=== PATIENT | female | born 1945 | race Two or more races ===

== ENCOUNTER 2024-11-03 01:56 | Inpatient (IN) | payer OTHER ==
[~2024-11-03] VITALS: Ht 162.6 cm; Wt 63.0 kg
--- NOTE | 2024-11-03 02:14 | NUR ---
PACIENTE ALERTA Y ORIENTADA X3 EN COMPANIA DE AMBULANCIA INDICA ES UN [facility] POR KELSEA MASA EN EL PANCREAS ACEPTADA POR DRA. COWART. PTE CANALIZADA CON ANGIO #20 Y HEPARIN LOCK.
[2024-11-03] MEDS ORDERED: 0.9 % SODIUM CHLORIDE 1,000 ML IV STA (02:33)
--- NOTE | 2024-11-03 02:53 | NUR ---
SE EDUCA A PTE Y FAMILIAR SOBRE TX MEDICO, SE ATILIO MUESTRAS DE LABORATORIO UTILIZANDO MEDIDAS ASEPTICAS. PTE CON H/L EN BRAZO LT [place], SE VERIFICA EL MISMO EL CUAL SE ENCUENTRA PATENTE. SE [place] IV FLUIDS COURTNEY ORDEN MEDICA. SE REALIZA EKG A PTE Y SE PRESENTA A MD.
[2024-11-03 03:35] LABS: ALBUMIN 2.6 gm/dL (3.4-5.0); CALCIUM 8.7 mg/dL (8.5-10.1); CREATININE SERUM 1.1 mg/dL (0.55-1.02); GFR 47.79; GLOBULINA 4.3 G/DL (2.4-3.5); POTASSIUM 4.09 mEq/L (3.5-5.1); TOTAL PROTEIN 6.9 gm/dL (6.4-8.2)
[2024-11-03 03:38] LABS: BILIRUBIN,UNCONJUGATED 2.29 mg/dL (0.0-0.6)
[2024-11-03 03:40] LABS: BILIRUBIN TOTAL 12.9 mg/dL (0.3-1.2); BILIRUBIN,CONJUGATED 10.61 mg/dL (0.0-0.2)
[2024-11-03 03:59] LABS: BASO % 0.9 % (0.1-1.2); EOS # 0.06 (0.04-0.54); EOS % 0.8 % (0.7-7.0); HEMATOCRIT 37.4 % (34.1-44.9); HEMOGLOBIN 12.8 g/dL (11.2-15.7); LYMPH # 0.81 (1.18-3.74); LYMPH % 10.9 % (19.3-53.1); MEAN CORPUSCULAR HEMOGLOBIN 29.8 pg (25.6-32.2); MONO # 0.24 (0.24-0.82); MONO % 3.2 % (4.7-12.5); NEUT # 6.21 (1.56-6.13); NEUT % 83.7 % (34.0-71.1); PLATELET COUNT 324 K/uL (163-369); RED BLOOD COUNT 4.29 M/uL (3.93-5.22); RED CELL DISTRIBUTION WIDTH 14.8 % (11.6-14.4)
[2024-11-03 04:00] LABS: ERYTHROCYTE SEDIMENTATION RATE 106 mm/hr (0-30)
[2024-11-03] MEDS ORDERED: 0.9 % SODIUM CHLORIDE 1,000 ML IV SCH (11:45)
[2024-11-03] MEDS ORDERED: LACTOBACILLUS ACIDOPHILUS 1 CAP CAP PO SCH (11:51)
[2024-11-03] MEDS ORDERED: MULTIVIT INFUSN,ADULT 4,VIT K 10 ML VIAL IV SCH (11:51)
[2024-11-03] MEDS ORDERED: ASPIRIN 81 MG TABLET.EC PO SCH (11:53)
[2024-11-03] MEDS ORDERED: AMLODIPINE BESYLATE 5 MG TABLET PO SCH (11:54)
[2024-11-03] MEDS ORDERED: FAMOTIDINE/PF 20 MG/2 ML VIAL IV SCH (11:55)
[2024-11-03] MEDS ORDERED: MEMANTINE HCL 10 MG TABLET PO SCH (11:56)
[2024-11-03] MEDS ORDERED: SERTRALINE HCL 50 MG TABLET PO SCH (11:57)
[2024-11-03] MEDS ORDERED: DEXTROSE 50 % IN WATER 0.5 G/ML VIAL IV PRN (12:00)
[2024-11-03] MEDS ORDERED: ACETAMINOPHEN 500 MG GEL..CAP PO PRN (12:00)
[2024-11-03] MEDS ORDERED: INSULIN LISPRO 1,000 UNIT/10 ML UNITS SUBCUTANEO PRN (12:00)
[2024-11-03] MEDS ORDERED: AMPICILLIN SODIUM IV SCH (13:00)
[2024-11-03] MEDS ORDERED: SULBACTAM NA IV SCH (13:00)
[2024-11-03] MEDS ORDERED: CHOLESTYRAMINE/ASPARTAME LIGHT 4 G/PKT PACKET PO SCH (13:00)
[2024-11-03] MEDS ORDERED: SODIUM CHLORIDE 0.9% IV SCH (13:00)
[2024-11-03 16:26] LABS: PH,URINE 5.5 (5.0-8.0); URINE APPEARANCE Clear; URINE BILIRRUBIN Large (NEGATIVE); URINE BLOOD Small; URINE COLOR Dark Yellow; URINE LEUKOCYTE Negative; URINE NITRATE Negative; URINE PROTEIN 30 (NEGATIVE); URINE UROBILINOGEN 0.2 E.U./dl
[2024-11-03 16:41] LABS: URINE RBC 18.1 uL (0.0-20.8); URINE WBC 4.2 uL (0.0-23.2)
[2024-11-03 16:57] LABS: URINE CAST 0.58 uL (0.0-1.40); URINE GLUCOSE >=1000 MG/DL (NEGATIVE); URINE KETONE 40 (NEGATIVE)
[2024-11-03 16:58] LABS: URINE MUCUS SCANT
[2024-11-03] MEDS ORDERED: RIVASTIGMINE 4.5 MG PO SCH (17:00)
[2024-11-03 20:00] VITALS: BP 158/84; O2SAT 98
[2024-11-03] MEDS ORDERED: METOPROLOL SUCCINATE 50 MG TAB.SR.24H PO SCH (21:00)
[2024-11-03] MEDS ORDERED: QUETIAPINE FUMARATE 25 MG TABLET PO SCH (21:00)
[2024-11-04 01:27] VITALS: BP 145/79
[2024-11-04] MEDS ORDERED: LOSARTAN POTASSIUM 50 MG TABLET PO SCH (09:00)
[2024-11-04 09:14] VITALS: BP 150/85; O2SAT 99
[2024-11-04 10:09] LABS: BASO % 0.3 % (0.1-1.2); EOS # 0.01 (0.04-0.54); EOS % 0.1 % (0.7-7.0); HEMATOCRIT 34.3 % (34.1-44.9); HEMOGLOBIN 11.8 g/dL (11.2-15.7); LYMPH # 1.26 (1.18-3.74); LYMPH % 9.9 % (19.3-53.1); MEAN CORPUSCULAR HEMOGLOBIN 29.9 pg (25.6-32.2); MONO # 1.18 (0.24-0.82); MONO % 9.3 % (4.7-12.5); NEUT # 10.15 (1.56-6.13); NEUT % 79.8 % (34.0-71.1); PLATELET COUNT 361 K/uL (163-369); RED BLOOD COUNT 3.95 M/uL (3.93-5.22); RED CELL DISTRIBUTION WIDTH 14.8 % (11.6-14.4)
[2024-11-04 10:42] LABS: ERYTHROCYTE SEDIMENTATION RATE 125 mm/hr (0-30)
[2024-11-04 10:47] LABS: INR 1.27; PARTIAL THROMBOPLASTIN TIME 21.6 SECONDS (22.0-34.0); PROTHROMBIN TIME 13.6 SECONDS (9.0-11.5)
[2024-11-04 12:53] LABS: CALCIUM 9.1 mg/dL (8.5-10.1); CREATININE SERUM 0.95 mg/dL (0.55-1.02); GFR 56.6; PHOSPHOROUS 2.1 mg/dL (2.5-4.9); POTASSIUM 4.74 mEq/L (3.5-5.1)
[2024-11-04 12:54] LABS: ALBUMIN 2.6 gm/dL (3.4-5.0); BILIRUBIN TOTAL 15.97 mg/dL (0.3-1.2); CHOL HDL RATIO 38.9 (0-5.0); GLOBULINA 4.3 G/DL (2.4-3.5); MAGNESIUM 2.4 mg/dL (1.8-2.4); TOTAL PROTEIN 6.9 gm/dL (6.4-8.2)
[2024-11-04 12:55] LABS: C-REACTIVE PROTEIN 2.44 MG/DL (0.00-0.29)
[2024-11-04 12:56] LABS: TSH 0.757 uIU/mL (0.358-3.74)
[2024-11-04] MEDS ORDERED: POTASSIUM PHOS,M-BASIC-D-BASIC 15 MM in 0.9 % SODIUM CHLORIDE 250 ML IV NR (14:00)
[2024-11-04] MEDS ORDERED: LACTULOSE 20 G/30 ML BLIST.PACK PO SCH (17:00)
[2024-11-04] MEDS ORDERED: IOVERSOL 320 MG/ML - 50 ML VIAL IV ONE (18:55)
[2024-11-05] MEDS ORDERED: SODIUM CL 0.9% 100 ML IV.SOLN IV ONE ×3 (00:09→20:17)
[2024-11-05 01:19] VITALS: BP 142/70; O2SAT 97
[2024-11-05 09:11] LABS: HEPATITIS A IGM Negative (Negative); HEPATITIS B CORE IGM Negative (Negative); HEPATITIS B SURFACE ANTIBODY Non Reactive (.); HEPATITIS C VIRUS ANTIBODY Non Reactive (Non Reactive)
[2024-11-05 09:26] VITALS: BP 156/81; O2SAT 95
[2024-11-05 13:09] LABS: URINE APPEARANCE Clear; URINE BILIRRUBIN Large (NEGATIVE); URINE BLOOD Trace; URINE COLOR Dark Yellow; URINE KETONE Negative (NEGATIVE); URINE LEUKOCYTE Negative; URINE NITRATE Negative; URINE PROTEIN Negative (NEGATIVE); URINE UROBILINOGEN 0.2 E.U./dl
[2024-11-05 13:13] LABS: URINE BACTERIA 7.3 uL (0.0-1933); URINE EPITHELIAL CELLS 7.5 uL (0.0-38.8); URINE RBC 9.4 uL (0.0-20.8); URINE WBC 1.8 uL (0.0-23.2)
[2024-11-05 13:23] LABS: URINE CAST 0.14 uL (0.0-1.40); URINE GLUCOSE 500 MG/DL (NEGATIVE)
[2024-11-05 17:59] VITALS: BP 158/84
[2024-11-06] MEDS ORDERED: SODIUM CL 0.9% 100 ML IV.SOLN IV ONE ×2 (00:42→08:47)
[2024-11-06 03:02] VITALS: BP 155/83; O2SAT 95
[2024-11-06 08:00] VITALS: BP 153/79
[2024-11-06] MEDS ORDERED: INSULIN GLARGINE,HUM.REC.ANLOG 1,000 UNITS/10 ML UNITS SUBCUTANEO SCH (09:00)
[2024-11-06 15:55] LABS: ALBUMIN 2.3 gm/dL (3.4-5.0); CALCIUM 8.9 mg/dL (8.5-10.1); CREATININE SERUM 0.73 mg/dL (0.55-1.02); GFR 76.71; GLOBULINA 3.2 G/DL (2.4-3.5); POTASSIUM 4.18 mEq/L (3.5-5.1); TOTAL PROTEIN 5.5 gm/dL (6.4-8.2)
[2024-11-06 16:59] LABS: BILIRUBIN TOTAL 13.86 mg/dL (0.3-1.2)
[2024-11-06] MEDS ORDERED: LACTULOSE 20 G/30 ML BLIST.PACK PO SCH (17:00)
[2024-11-06] MEDS ORDERED: PIPERACILLIN/TAZOBACTAM SODIUM 3.375 GM in DEXTROSE 5 % IN WATER 100 ML IV SCH (18:00)
[2024-11-06 19:11] VITALS: BP 145/75
[2024-11-06] MEDS ORDERED: BUPIVACAINE HCL/MPF 0.5% 30ML VIAL ONE (21:24)
[2024-11-06] MEDS ORDERED: IOVERSOL 320 MG/ML - 50 ML VIAL IV ONE (21:24)
[2024-11-06] MEDS ORDERED: FAMOTIDINE/PF 20 MG/2 ML VIAL ONE (22:30)
[2024-11-06] MEDS ORDERED: PIPERACILLIN/TAZOBACTAM SODIUM 3.375 GM VIAL IV ONE (23:58)
[2024-11-07 03:56] VITALS: BP 133/80
[2024-11-07 08:48] VITALS: BP 130/76; O2SAT 99
[2024-11-07 10:13] LABS: BASO % 0.6 % (0.1-1.2); EOS # 0.26 (0.04-0.54); EOS % 2.3 % (0.7-7.0); HEMATOCRIT 35.9 % (34.1-44.9); HEMOGLOBIN 12.2 g/dL (11.2-15.7); LYMPH # 1.53 (1.18-3.74); LYMPH % 13.3 % (19.3-53.1); MEAN CORPUSCULAR HEMOGLOBIN 29.8 pg (25.6-32.2); MONO # 0.57 (0.24-0.82); NEUT # 9.01 (1.56-6.13); NEUT % 78.4 % (34.0-71.1); PLATELET COUNT 302 K/uL (163-369); RED CELL DISTRIBUTION WIDTH 15.5 % (11.6-14.4)
[2024-11-07] MEDS ORDERED: PIPERACILLIN/TAZOBACTAM SODIUM 3.375 GM VIAL IV ONE (16:40)
[2024-11-07 18:52] VITALS: BP 153/83; O2SAT 98
[2024-11-08] VITALS: BP 152/83; O2SAT 95
[2024-11-08 08:11] VITALS: BP 145/83
[2024-11-08 12:11] LABS: ALBUMIN 2.4 gm/dL (3.4-5.0); BILIRUBIN TOTAL 5.75 mg/dL (0.3-1.2); CALCIUM 9.1 mg/dL (8.5-10.1); CREATININE SERUM 0.78 mg/dL (0.55-1.02); GFR 71.06; GLOBULINA 3.8 G/DL (2.4-3.5); POTASSIUM 3.83 mEq/L (3.5-5.1); TOTAL PROTEIN 6.2 gm/dL (6.4-8.2)
[2024-11-08] MEDS ORDERED: LACTULOSE10 GM/152 PO (15:12)
[2024-11-08] MEDS ORDERED: CHOLESTYRAMINE L4 GM PO (15:12)
[2024-11-08] MEDS ORDERED: FAMOtidine 20 MG TABLET PO SCH (21:00)
== END 2024-11-08 15:54 | disposition home or self-care (01) | DRG 445 ==
LOC: ER 01:56 → MEDJ 12:30 → EDBD 12:30 → MEDJ 11-08 15:54
PROVIDERS: Internal Medicine; Internal Medicine Infectious Disease; ADMIT Internal Medicine; ATTEND Internal Medicine
PROC: BF37ZZZ Magnetic Resonance Imaging (MRI) of Pancreas (ICD-10-PCS; 2024-11-03)
PROC: B24BYZZ Ultrasonography of Heart with Aorta using Other Contrast (ICD-10-PCS; 2024-11-03)
PROC: 0FJD8ZZ Inspection of Pancreatic Duct, Via Natural or Artificial Opening Endoscopic (ICD-10-PCS; 2024-11-04)
PROC: 0DJ08ZZ Inspection of Upper Intestinal Tract, Via Natural or Artificial Opening Endoscopic (ICD-10-PCS; principal; 2024-11-04 18:00)
PROC: 0F9G3ZZ Drainage of Pancreas, Percutaneous Approach (ICD-10-PCS; 2024-11-07)
DX: K83.1 Obstruction of bile duct (principal); N17.9 Acute kidney failure, unspecified; N39.0 Urinary tract infection, site not specified; E11.9 Type 2 diabetes mellitus without complications; Z79.4 Long term (current) use of insulin; I10 Essential (primary) hypertension; G30.9 Alzheimer's disease, unspecified; F02.80 Dementia in other diseases classified elsewhere, unspecified severity, without behavioral disturbance, psychotic disturbance, mood disturbance, and anxiety; K86.89 Other specified diseases of pancreas